=== PATIENT | female | born 1990 | race African-American/Black ===

== ENCOUNTER 2019-10-29 00:10 | Emergency (ER) | payer MEDICAID, OTHER ==
[~2019-10-29] VITALS: Ht 170.2 cm; Wt 59.0 kg
[2019-10-29] MEDS ORDERED: BUPROPION XL150 MG ORAL (00:26)
[2019-10-29] MEDS ORDERED: ABILIFY15 MG ORAL (00:26)
[2019-10-29] MEDS ORDERED: PREDNISONE20 MG ORAL (00:53)
[2019-10-29] MEDS ORDERED: ALBUTEROL SULF8.5 GM INH (00:53)
--- NOTE | 2019-10-29 00:54 | Emergency Room Report ---
History of Present Illness General Chief Complaint: Asthma Source: Patient Present Illness HPI This is a 29-year-old female with a history of asthma as a kid. She has not had to use her inhaler for over 6 years. She presents with chief complaint of shortness of breath and wheezing. Onset 6 hours ago. She says she was around people who were sick and smoking. She been having wheezing and short of breath since then. Worse with exertion. Better with rest. No chest pain. No fever chills. Coughing is nonproductive nature. Denies any other complaint. Allergies: Coded Allergies: No Known Allergies (Unverified , 10/29/19) Patient History Past Medical History: see triage record, old chart reviewed, asthma Past Surgical History: none Pertinent Family History: none Social History: Reports: smoking Last Menstrual Period: 10/23/19 Now: No Immunizations: other Reviewed Nursing Documentation: PMH: Agreed; PSxH: Agreed Nursing Documentation-PMH Past Medical History: No History, Except For Hx Asthma: Yes History Of Psychiatric Problem: Yes - BIPOLAR Review of Systems Eye: Denies: eye pain, blurred vision ENT: Denies: ear pain, nose congestion, throat swelling Respiratory: Reports: cough, shortness of breath, wheezing Cardiovascular: Denies: chest pain, palpitations Gastrointestinal: Denies: abdominal pain, diarrhea, nausea, vomiting Musculoskeletal: Denies: back pain, joint pain Skin: Denies: rash Neurological: Denies: headache, numbness Endocrine: Denies: increased thirst, increased urine Hematologic/Lymphatic: Denies: easy bruising All Other Systems: negative except mentioned in HPI Physical Exam Vital Signs Date Time Temp Pulse Resp B/P (MAP) Pulse Ox O2 Delivery O2 Flow Rate FiO2 10/29/19 00:22 97.5 105 22 117/77 (90) 99 Room Air Vitals normal Sp02 EP Interpretation: reviewed, normal General Appearance: well appearing, no apparent distress, alert Head: normocephalic, atraumatic Eyes: bilateral eye PERRL, bilateral eye EOMI ENT: hearing grossly normal, normal pharynx Neck: full range of motion, supple, no meningismus Respiratory: chest non-tender, decreased breath sounds, wheezing Cardiovascular #1: regular rate, rhythm, no murmur Gastrointestinal: normal bowel sounds, non tender, no mass, no organomegaly, no bruit, non-distended Musculoskeletal: back normal, normal range of motion, gait/station normal Psychiatric: mood/affect normal Medical Decision Making Diagnostic Impression: Primary Impression: Asthma exacerbation Qualified Codes: J45.21 - Mild intermittent asthma with (acute) exacerbation Additional Impression: Bacterial vaginosis ER Course Patient presents with asthma exacerbation. No evidence of ACS, PE, pneumonia, dissection to name a few. Better after breathing treatment. Will discharge home. Patient also asked prescription for Flagyl for bacterial vaginosis. She states she usually get this when she has a new sexual partner. Last Vital Signs Date Time Temp Pulse Resp B/P (MAP) Pulse Ox O2 Delivery O2 Flow Rate FiO2 10/29/19 00:22 97.5 105 22 117/77 (90) 99 Room Air Status: improved Disposition: HOME, SELF-CARE Condition: Stable Scripts Metronidazole* (FLAGYL*) 500 Mg Tablet 500 MG ORAL BID for 7 Days, #14 TAB Prov: Jason Dyer MD 10/29/19 Prednisone* (PREDNISONE*) 20 Mg Tablet 40 MG ORAL DAILY, #8 TAB Prov: Jason Dyer MD 10/29/19 Albuterol Sulfate* (ALBUTEROL SULFATE MDI*) 8.5 Gm Hfa.aer.ad 2 PUFF INH Q4H PRN for cough/wheezing, #1 EA 0 Refills Prov: Jason Dyer MD 10/29/19 Referrals: NOT CHOSEN IPA/,REFERRING (PCP) Patient Instructions: Asthma, Adult Additional Instructions: Follow-up with your doctor in 7 days. Avoid secondhand smoke. Stop smoking. Return if symptoms worsen. Jason Dyer MD Oct 29, 2019 00:54
[2019-10-29] MEDS ORDERED: Albuterol ud Inhalation HHN ONE (01:00)
[2019-10-29] MEDS ORDERED: Ipratropium 0.02% Inh Soln 2.5ml UD HHN ONE (01:00)
[2019-10-29] MEDS ORDERED: METRONIDAZOLE500 MG ORAL (01:41)
[2019-10-29 01:45] VITALS: BP 117/77
--- NOTE | 2019-10-29 01:45 | NUR ---
ER DISCHARGE NOTE: Patient is cleared to be discharged per ERMD, pt is aox4, on room air, with stable vital signs. pt was given dc and prescription instructions, pt was able to verbalize understanding, pt id band removed without complications. pt is able to ambulate with steady gait. pt took all belongings.
== END 2019-10-29 01:45 | disposition home or self-care (01) ==
LOC: EMR 00:23
DX: J45.21 Mild intermittent asthma with (acute) exacerbation (principal); N76.0 Acute vaginitis; F31.9 Bipolar disorder, unspecified; F17.200 Nicotine dependence, unspecified, uncomplicated
CPT/HCPCS: J7512; Z7502; 99284

== ENCOUNTER 2019-11-23 02:19 | Emergency (ER) | payer OTHER ==
[~2019-11-23] VITALS: Ht 167.6 cm; Wt 59.0 kg
[~2019-11-23 02:19] MED LIST: ABILIFY15 MG ORAL; ALBUTEROL SULF8.5 GM INH; BUPROPION XL150 MG ORAL; METRONIDAZOLE500 MG ORAL; PREDNISONE20 MG ORAL
[2019-11-23 02:29] VITALS: BP 130/82
[2019-11-23] MEDS ORDERED: Albuterol/Ipratropium 3ml neb HHN ONE (02:30)
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
--- NOTE | 2019-11-23 02:33 | NUR ---
ED Nurse Note: Pt refused VS
--- NOTE | 2019-11-23 02:40 | NUR ---
ED Nurse Note: ERMD at bedside.
--- NOTE | 2019-11-23 02:47 | NUR ---
ED Nurse Note: RT at bedside; pt refused breathing tx.
[2019-11-23] MEDS ORDERED: ALBUTEROL SULF8.5 GM INH (02:57)
--- NOTE | 2019-11-23 03:27 | NUR ---
ED Nurse Note: Pt's friend arrived; pt refused further medical treatment
[2019-11-23 03:34] VITALS: BP 130/82
--- NOTE | 2019-11-23 03:34 | NUR ---
ER DISCHARGE NOTE: Patient is cleared to be discharged home with friend per ALEXANDRA, pt is aox4, on room air, with stable vital signs. pt was given dc and prescription instructions, pt was able to verbalize understanding, pt id band. pt is able to ambulate with steady gait. pt took all belongings.
--- NOTE | 2019-11-23 03:35 | NUR ---
Hemant winkler in EDM - 11/23/19 at 0532 by [facility] ED Nurse Note: Pt's friend arrived; pt refused further medical treatment
== END 2019-11-23 03:34 | disposition home or self-care (01) ==
LOC: EDBD 02:19 → EDUNIT# 02:19 → EMR 02:33
DX: R06.02 Shortness of breath (principal); R00.0 Tachycardia, unspecified
CPT/HCPCS: 99281; J7620

== ENCOUNTER 2019-12-13 17:11 | Emergency (ER) | payer OTHER ==
[~2019-12-13] VITALS: Ht 170.2 cm; Wt 63.5 kg
[2019-12-13 17:39] VITALS: BP 122/81
--- NOTE | 2019-12-13 18:03 | Emergency Room Report ---
History of Present Illness General Chief Complaint: Skin Rash/Abscess Source: Patient Present Illness HPI This patient left prior to evaluation by medical provider. COVID-19 risk:Contact w/high r: No COVID-19 risk:Travel to affect: No Has patient experienced short: No Allergies: Coded Allergies: No Known Allergies (Unverified , 10/29/19) Patient History Last Menstrual Period: 11/22/2019 Nursing Documentation-[facility] Past Medical History: No Stated History Hx Asthma: Yes Physical Exam Vital Signs Date Time Temp Pulse Resp B/P (MAP) Pulse Ox O2 Delivery O2 Flow Rate FiO2 12/13/19 17:17 98.4 105 18 129/85 (100) 99 Room Air Medical Decision Making PA Attestation Dr. Negro Is my supervising Physician whom patient management has been discussed with. ER Course This patient left prior to evaluation by medical provider. Provider went to examine pt. at the 51 minute rivera and pt. was not in room. Last Vital Signs Date Time Temp Pulse Resp B/P (MAP) Pulse Ox O2 Delivery O2 Flow Rate FiO2 12/13/19 17:39 98.4 86 16 122/81 98 Room Air Disposition: LEFT W/OUT BEING SEEN Condition: Unknown Kenia Cotter Dec 13, 2019 18:03
== END 2019-12-13 18:02 | disposition left against medical advice (07) ==
LOC: EMR 17:58
DX: Z53.21 Procedure and treatment not carried out due to patient leaving prior to being seen by health care provider (principal)

== ENCOUNTER 2019-12-15 01:04 | Emergency (ER) | payer OTHER ==
[~2019-12-15] VITALS: Ht 170.2 cm; Wt 63.5 kg
[2019-12-15 01:15] VITALS: BP 125/70
--- NOTE | 2019-12-15 01:15 | NUR ---
ED Nurse Note: pt ambulated into ed from home CO pain from possible abcess on back right thigh/lower buttocks x 1 week. VSS no ss of distress noted. pt states pain 4/10. ERMD at bedside
--- NOTE | 2019-12-15 01:17 | NUR ---
ED Nurse Note: all medications administered, pt tolerated well no ss of distress noted. no adverse reactions noted.
[2019-12-15] MEDS ORDERED: CEPHALEXIN500 M1 ORAL (01:20)
[2019-12-15] MEDS ORDERED: BACTRIM DS TAB1 EAC1 ORAL (01:20)
--- NOTE | 2019-12-15 01:25 | Emergency Room Report ---
History of Present Illness General Chief Complaint: Skin Rash/Abscess Source: Patient Present Illness HPI Patient is a 29-year-old female denies any significant past medical history who presents to the ER complaining of right posterior upper thigh abscess for the past few days. She denies any fever or chills. She states that she had another abscess to her right buttock that previously healed without any intervention. She denies any rash. She denies any chest pain, shortness of breath, nausea or vomiting. COVID-19 risk:Contact w/high r: No COVID-19 risk:Travel to affect: No Has patient experienced short: No Allergies: Coded Allergies: No Known Allergies (Unverified , 10/29/19) Patient History Past Medical History: none Past Surgical History: none Social History: Reports: drug use - marijuana Nursing Documentation-[facility] Hx Asthma: Yes Review of Systems All Other Systems: negative except mentioned in HPI Physical Exam Vital Signs Date Time Temp Pulse Resp B/P (MAP) Pulse Ox O2 Delivery O2 Flow Rate FiO2 12/15/19 01:13 97.9 100 16 125/70 (88) 98 Room Air Sp02 EP Interpretation: reviewed, normal General Appearance: no apparent distress, alert, GCS 15, non-toxic Head: normocephalic, atraumatic Eyes: bilateral eye normal inspection, bilateral eye PERRL ENT: hearing grossly normal, normal pharynx, no angioedema, normal voice Neck: full range of motion, supple/symm/no masses Respiratory: chest non-tender, lungs clear, normal breath sounds, speaking full sentences Cardiovascular #1: regular rate, rhythm, no edema Gastrointestinal: normal bowel sounds, non tender, soft, non-distended, no guarding, no rebound Rectal: deferred Genitourinary: normal inspection, no CVA tenderness Musculoskeletal: back normal, normal range of motion, calf tenderness, gait/ station normal, other - Right posterior upper thigh below the gluteus abscess with tenderness to palpation no area of maximal fluctuance for I&D, no crepitus , mild warmth and erythema to the area. Evidence of old healed abscess to right upper buttock Neurologic: alert, motor strength/tone normal, oriented x3, sensory intact, responsive, speech normal Psychiatric: judgement/insight normal, memory normal, mood/affect normal, no suicidal/homicidal ideation Lymphatic: no adenopathy Medical Decision Making Diagnostic Impression: Primary Impression: Abscess ER Course Patient given Keflex and Bactrim. No maximal area of fluctuance for I&D. Patient requesting prescription for Abilify. I have explained to her that we do not refill psychiatric medications in this emergency department. Patient given a prescription for both Keflex and Bactrim. After discussing risks and benefits of further diagnostics, treatment plans, as well as indications for and risks of admission, the patient is agreeable to being discharged home. I have explained that their evaluation and treatment in the emergency department today is an important step towards them achieving better health but that their evaluation today is not intended to replace further evaluation and treatment by a physician in their local clinic. I have explained that while the current findings suggest no immediate life threatening emergency they will require further evaluation and treatment by a physician of their choice in their area. They understand that it will be necessary for them to review the final reports of their ED visit with their clinic physician. We have reviewed indications for return to the Emergency Department. I have explained that additional time may need to pass and/or additional testing as an outpatient may be necessary before a definitive diagnosis can be made. They tell me they are willing to follow up as instructed within the timeframe I recommend. They appear to understand what we discussed. Additionally they understand that if they are unable to be seen by an outpatient physician they are welcome, and in fact should, return to the Emergency Department for a repeat evaluation. The patient is stable at time of discharge. Last Vital Signs Date Time Temp Pulse Resp B/P (MAP) Pulse Ox O2 Delivery O2 Flow Rate FiO2 12/15/19 01:13 97.9 100 16 125/70 (88) 98 Room Air Disposition: HOME, SELF-CARE Condition: Stable Scripts Cephalexin* (KEFLEX*) 500 Mg Tablet 500 MG ORAL EVERY 8 HOURS for 10 Days, CAP Prov: Cherie Potts M.D. 12/15/19 Trimethoprim/Sulfamethoxazole 160/800* (BACTRIM DS TABLET*) 1 Each Tablet 1 TAB ORAL Q12H, #20 TAB 0 Refills Prov: Cherie Potts M.D. 12/15/19 Referrals: [facility] Serra [facility] Patient Instructions: Abscess Additional Instructions: The patient was provided with discharge instructions, notified to follow-up with a primary care doctor and or specialist in the next 24-48 hours, and to return to the ED if they have worsening of their symptoms. Please note that this report is being documented using [employer] technology. This can lead to erroneous entry secondary to incorrect interpretation by the dictating instrument. Cherie Potts M.D. Dec 15, 2019 01:25
[2019-12-15 01:26] VITALS: BP 125/70
--- NOTE | 2019-12-15 01:26 | NUR ---
ER DISCHARGE NOTE: Patient is cleared to be discharged home per ERMD, pt is aox4, on room air, with stable vital signs. pt was given dc and prescription instructions, pt was able to verbalize understanding, pt id band removed. pt is able to ambulate with steady gait. pt took all belongings.
[2019-12-15] MEDS ORDERED: Cephalexin 500mg cap ORAL ONE (01:30)
[2019-12-15] MEDS ORDERED: Bactrim-DS 1 tab ORAL ONE (01:30)
== END 2019-12-15 01:30 | disposition home or self-care (01) ==
LOC: EMR 01:27
DX: L02.415 Cutaneous abscess of right lower limb (principal)
CPT/HCPCS: 99283

== ENCOUNTER 2020-02-24 02:45 | Emergency (ER) | payer MEDICAID, OTHER ==
[~2020-02-24] VITALS: Ht 170.2 cm; Wt 63.5 kg
[~2020-02-24 02:45] MED LIST changes: +BACTRIM DS TAB1 EAC1 ORAL; +CEPHALEXIN500 M1 ORAL
[2020-02-24 02:50] VITALS: BP 128/68
--- NOTE | 2020-02-24 03:07 | Emergency Room Report ---
History of Present Illness General Chief Complaint: General Complaint Source: Patient Present Illness HPI This 29-year-old female who is right-hand dominant. She presents with chief complaint of ingrown fingernail. Onset for about a week but worse in the last couple of days. More swollen. She been trying remove it and also biting at it. Now very tender. Worse with palpation. Pain is 8 out of 10. Better with rest. Denies any other complaint. No drainage. Allergies: Coded Allergies: No Known Allergies (Unverified , 10/29/19) COVID-19 Screening Contact w/high risk pt: No Recent Travel to affected area: No Experienced COVID-19 symptoms?: No COVID-19 Testing performed RADIOCHEMICAL TECHNICIAN: No Patient History Past Medical History: see triage record, old chart reviewed Past Surgical History: none Pertinent Family History: none Social History: Denies: smoking Last Menstrual Period: 12/23 Now: No Immunizations: other Reviewed Nursing Documentation: PMH: Agreed; PSxH: Agreed Nursing Documentation-PMH Hx Asthma: Yes Review of Systems Eye: Denies: eye pain, blurred vision ENT: Denies: ear pain, nose congestion, throat swelling Respiratory: Denies: cough, shortness of breath Cardiovascular: Denies: chest pain, palpitations Gastrointestinal: Denies: abdominal pain, diarrhea, nausea, vomiting Musculoskeletal: Reports: joint pain, joint swelling; Denies: back pain Skin: Denies: rash Neurological: Denies: headache, numbness Endocrine: Denies: increased thirst, increased urine Hematologic/Lymphatic: Denies: easy bruising All Other Systems: negative except mentioned in HPI Physical Exam Vital Signs Date Time Temp Pulse Resp B/P (MAP) Pulse Ox O2 Delivery O2 Flow Rate FiO2 02/24/20 02:47 97.9 68 14 128/68 (88) 94 Room Air Vitals normal Sp02 EP Interpretation: reviewed, normal General Appearance: well appearing, no apparent distress, alert Head: normocephalic, atraumatic Eyes: bilateral eye PERRL, bilateral eye EOMI ENT: hearing grossly normal, normal pharynx Neck: full range of motion, supple, no meningismus Respiratory: chest non-tender, lungs clear, normal breath sounds Cardiovascular #1: regular rate, rhythm, no murmur Gastrointestinal: normal bowel sounds, non tender, no mass, no organomegaly, no bruit, non-distended Musculoskeletal: back normal, normal range of motion, gait/station normal, swelling - Right middle finger: On the lateral aspect on the ulnar aspect there is ingrown nail with tenderness and swelling. No drainage. No paronychia. Psychiatric: mood/affect normal Procedures Additional Procedure Procedure Narrative Procedure: Ingrown nail extraction Indication: Infected ingrown nail Description: I soak the finger into Betadine solution. After 10 minutes, I cleaned the finger and did a digital block. Using a hemostat, I removed a piece of hangnail/ingrown nail at the base. Patient tolerated surgery without any problem. No complication. Medical Decision Making Diagnostic Impression: Primary Impression: Ingrowing nail with infection ER Course Patient presents with an infected ingrown nail. No evidence of felon or paronychia. Will discharge home. Last Vital Signs Date Time Temp Pulse Resp B/P (MAP) Pulse Ox O2 Delivery O2 Flow Rate FiO2 02/24/20 02:47 97.9 68 14 128/68 (88) 94 Room Air Status: improved Disposition: HOME, SELF-CARE Condition: Stable Scripts Ibuprofen* (MOTRIN*) 600 Mg Tablet 600 MG ORAL Q6H PRN for For Pain, #30 TAB 0 Refills Prov: Jason Dyer MD 02/24/20 Clindamycin Hcl (CLINDAMYCIN HCL) 300 Mg Capsule 300 MG ORAL THREE TIMES A DAY, #21 CAP Prov: Jason Dyer MD 02/24/20 Additional Instructions: Keep wound clean. Clean with hydrogen peroxide and then apply antibiotic ointment and a Band-Aid. Follow-up in 3 to 5 days for recheck. Return if worse. Jason Dyer MD Feb 24, 2020 03:07
[2020-02-24] MEDS ORDERED: CLINDAMYCIN HC300 MG ORAL (03:39)
[2020-02-24] MEDS ORDERED: IBUPROFEN600 M1 ORAL (03:39)
[2020-02-24 04:00] VITALS: BP 125/75
[2020-02-24] MEDS ORDERED: HYDROcodone/Acetamin 5/325 tab ORAL ONE (04:00)
[2020-02-24] MEDS ORDERED: Bactrim-DS 1 tab ORAL ONE (04:00)
== END 2020-02-24 04:00 | disposition home or self-care (01) ==
LOC: EMR 03:10
DX: L60.0 Ingrowing nail (principal)
CPT/HCPCS: 11750; Z7502; 99283

== ENCOUNTER 2020-04-29 02:55 | Emergency (ER) | payer MEDICAID, OTHER ==
[~2020-04-29] VITALS: Ht 170.2 cm; Wt 68.0 kg
[~2020-04-29 02:55] MED LIST changes: +CLINDAMYCIN HC300 MG ORAL; +IBUPROFEN600 M1 ORAL
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
--- NOTE | 2020-04-29 03:12 | NUR ---
ED Nurse Note: Patient walked in from home d/t "mites". Patient aao x 4 and ambulatory with steady gait. Patient presents with generalized skin tears, states it has been going on for about two weeks, aching pain generalized /. Patient in stable condition upon assessment.
[2020-04-29 03:15] VITALS: BP 122/70
[2020-04-29] MEDS ORDERED: PERMETHRIN60 GM TOPIC (03:17)
[2020-04-29] MEDS ORDERED: CEPHALEXIN500 MG ORAL (03:17)
[2020-04-29 03:26] VITALS: BP 125/72
--- NOTE | 2020-04-29 03:26 | NUR ---
ER DISCHARGE NOTE: Patient is cleared to be discharged per ERMD, pt is aox4, on room air, with stable vital signs. pt was given dc and prescription instructions, pt was able to verbalize understanding, pt id band removed. pt is able to ambulate with steady gait. pt took all belongings. pt stable upon discharge.
== END 2020-04-29 03:35 | disposition home or self-care (01) ==
LOC: EMR 03:33
DX: B86 Scabies (principal); R21 Rash and other nonspecific skin eruption; J45.909 Unspecified asthma, uncomplicated; F17.200 Nicotine dependence, unspecified, uncomplicated
CPT/HCPCS: 99282

== ENCOUNTER 2020-07-23 10:06 | Emergency (ER) | payer MEDICAID ==
[~2020-07-23] VITALS: Ht 170.2 cm; Wt 63.5 kg
[~2020-07-23 10:06] MED LIST changes: +CEPHALEXIN500 MG ORAL; +PERMETHRIN60 GM TOPIC; +VIBRAMYCIN100 MG ORAL
[2020-07-23 10:42] VITALS: BP 126/60
[2020-07-23] MEDS ORDERED: Azithromycin 250mg tab ORAL ONE (11:00)
[2020-07-23] MEDS ORDERED: Lidocaine 1% MPF 10mg/ml 5ml INJ ONE (11:00)
[2020-07-23 11:05] LABS: APPEARANCE,URINE SLIGHTLY CLOUDY; BILIRUBIN, URINE NEGATIVE (NEGATIVE); GLUCOSE, URINE (UA) NEGATIVE (NEGATIVE); KETONES,URINE 1+ (NEGATIVE); LEUKOCYTE ESTERASE ,URINE 1+ (NEGATIVE); NITRITE,URINE NEGATIVE (NEGATIVE); PH,URINE 5 (4.5-8.0); PROTEIN,URINE 2+ (NEGATIVE); UROBILINOGEN,URINE 1 MG/DL (0.0-1.0)
[2020-07-23 11:07] LABS: COLOR,URINE YELLOW
--- NOTE | 2020-07-23 11:21 | Emergency Room Report ---
History of Present Illness General Chief Complaint: Female Urogenital Problems Source: Patient Present Illness HPI 30-year-old female here with 3 days of white vaginal discharge. Patient says that she has been sexually active with multiple male partners without use of protection. Is requesting "shot and the pill" for treatment for STI. Patient denies any fevers, chills, chest pain, palpitation, shortness of breath, back pain, abdominal pain, nausea, vomiting, diarrhea, dysuria. Allergies: Coded Allergies: No Known Allergies (Unverified , 10/29/19) COVID-19 Screening Contact w/high risk pt: No Recent Travel to affected area: No Experienced COVID-19 symptoms?: No COVID-19 Testing performed RN IMAGING: No Patient History Now: No Nursing Documentation-[facility] Past Medical History: No Stated History Hx Asthma: Yes Review of Systems All Other Systems: negative except mentioned in HPI Physical Exam Vital Signs Date Time Temp Pulse Resp B/P (MAP) Pulse Ox O2 Delivery O2 Flow Rate FiO2 07/23/20 10:12 98.1 93 16 126/60 (82) 99 Room Air Sp02 EP Interpretation: reviewed, normal General Appearance: no apparent distress, alert, non-toxic Head: normocephalic, atraumatic Eyes: bilateral eye normal inspection, bilateral eye PERRL ENT: hearing grossly normal, normal pharynx, no angioedema, normal voice Neck: full range of motion, supple/symm/no masses Respiratory: chest non-tender, lungs clear, normal breath sounds, speaking full sentences Cardiovascular #1: regular rate, rhythm, no edema Cardiovascular #2: 2+ carotid (R), 2+ carotid (L), 2+ radial (R), 2+ radial (L), 2+ dorsalis pedis (R), 2+ dorsalis pedis (L) Gastrointestinal: normal bowel sounds, non tender, soft, non-distended, no guarding, no rebound Rectal: deferred Genitourinary: normal inspection, no CVA tenderness, other - Scant amount of thin white discharge within the vaginal canal. No cervical motion tenderness or adnexal tenderness Musculoskeletal: back normal, normal range of motion, calf tenderness, gait/station normal, non-tender Neurologic: alert, motor strength/tone normal, oriented x3, sensory intact, responsive, speech normal Psychiatric: judgement/insight normal, memory normal, mood/affect normal, no suicidal/homicidal ideation Reflexes: 3+ bicep (R), 3+ bicep (L), 3+ tricep (R), 3+ tricep (L), 3+ knee (R), 3+ knee (L) Lymphatic: no adenopathy Medical Decision Making Diagnostic Impression: Primary Impression: Vaginal discharge Additional Impressions: Abnormal urogenital findings STI (sexually transmitted infection) ER Course Laboratory Tests Test 07/23/20 10:30 Urine Color Yellow Urine Appearance Slightly cloudy Urine pH 5 (4.5-8.0) Urine Specific [place] 1.025 (1.005-1.035) Urine Protein 2+ (NEGATIVE) H Urine Glucose (UA) Negative (NEGATIVE) Urine Ketones 1+ (NEGATIVE) H Urine Blood Negative (NEGATIVE) Urine Nitrite Negative (NEGATIVE) Urine Bilirubin Negative (NEGATIVE) Urine Urobilinogen 1 MG/DL (0.0-1.0) H Urine Leukocyte Esterase 1+ (NEGATIVE) H Urine RBC 0 /HPF (0 - 2) Urine WBC 0-2 /HPF (0 - 2) Urine Squamous Epithelial Cells Many /LPF (NONE/OCC) H Urine Bacteria Few /HPF (NONE) Urine Mucus Few /LPF (NONE/OCC) H Urine HCG, Qualitative Negative (NEGATIVE) 30-year-old female here requesting antibiotic treatment for sexual transmitted disease. Patient was given ceftriaxone and azithromycin here in the emergency department. Pelvic exam was largely unremarkable and patient had no evidence of adnexal tenderness, cervical motion tenderness, abdominal tenderness. No concern at this time for pelvic inflammatory disease. test negative. Patient's urinalysis did show some leukocytes, however patient was complaining only of vaginal discharge and no dysuria or urinary frequency or hematuria. Unlikely patient has urinary tract infection. Urine cultures pending. Patient was told to come back to the emergency department she has any worsening abdominal pain, fevers, chills, pelvic pain, dysuria. She expressed understanding and was discharged. Last Vital Signs Date Time Temp Pulse Resp B/P (MAP) Pulse Ox O2 Delivery O2 Flow Rate FiO2 07/23/20 10:42 98.1 16 126/60 99 Room Air 07/23/20 10:12 93 Disposition: HOME, SELF-CARE Condition: Stable Referrals: [facility] *Patients are seen by appointment only* [facility] Patient Instructions: Sexually Transmitted Disease, [id number] Baldomero Hernandez M.D. Jul 23, 2020 11:21
[2020-07-23 11:41] VITALS: BP 126/60
== END 2020-07-23 11:41 | disposition home or self-care (01) ==
LOC: EMR 10:23
DX: N89.8 Other specified noninflammatory disorders of vagina (principal); A64 Unspecified sexually transmitted disease; R87.9 Unspecified abnormal finding in specimens from female genital organs
CPT/HCPCS: 81003; 81025; 96372; J0696; Q0144; Z7502; 99283

== ENCOUNTER 2020-08-01 10:48 | Emergency (ER) | payer MEDICAID ==
[~2020-08-01] VITALS: Ht 170.2 cm; Wt 68.0 kg
[2020-08-01 10:56] VITALS: BP 121/74
--- NOTE | 2020-08-01 11:17 | Emergency Room Report ---
History of Present Illness General Chief Complaint: Skin Rash/Abscess Source: Patient Present Illness HPI Disclaimer: Please note that this report is being documented using Lookback[employer] technology. This can lead to erroneous entry secondary to incorrect interpretation by the dictating instrument. HPI: 30-year-old female presents for evaluation of skin rash and scabbing. Patient reports 6 months of intermittent small wounds on her arms and legs as well as worsening scarring. She states she feels her skin is not healing is normal. She reports tenderness over these healed lesions but denies redness, swelling or drainage. Denies fever or chills. She states she picks at scabs constantly out of nervousness. She has recently been treated for cellulitis, mites, scabies and states none of these have improved her symptoms. She is requested to be treated for staph infection. She denies abscess drainage or purulent discharge. 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 EOMI. Resp: Normal work of breathing Skin: Intact. There are multiple small healed lesions over the upper and lower extremities. No obvious signs of cellulitis, abscess. Nikolsky negative. No draining wounds. No findings in the finger webbing's. MSK: Normal tone and bulk. Moving all extremities. No obvious deformity. Neuro: Awake and alert. Mentating appropriately Medical Decision Making Diagnostic Impression: Primary Impression: Rash and other nonspecific skin eruption Additional Impression: Scarring ER Course Is a 30-year-old female presenting for evaluation of multiple skin lesions and increased scarring over the past 6 months. She has not yet seen dermatology. I find no signs of infection to suggest abscess or cellulitis. No clinical ev idence of scabies and patient states she has been treated with permethrin multiple times without changes in her symptoms. Patient's presentation is most consistent with skin picking behavior possibly due to her anxiety. I do not believe she needs antibiotics at this time but I will refer to outpatient clinic and dermatology follow-up. Also provided prescription of Benadryl cream which may provide some relief. Patient stable for outpatient follow-up. Last Vital Signs Date Time Temp Pulse Resp B/P (MAP) Pulse Ox O2 Delivery O2 Flow Rate FiO2 08/01/20 10:56 98.1 94 16 121/74 94 Room Air Disposition: HOME, SELF-CARE Scripts Diphenhydramine HCl/Zinc Acet (Benadryl Itch Stopping Crm) 28.3 Gm Cream..g. 1 APPLIC TOPIC TID, #30 APPLIC Prov: Benson Dial MD 08/01/20 Referrals: [facility] Additional Instructions: Follow-up with one of the primary care clinics here listed in your discharge paperwork. Establish yourself as a new patient and have a referral for dermatology to evaluate your recurrent skin lesions and scarring. Benson Dial MD Aug 01, 2020 11:17
[2020-08-01] MEDS ORDERED: BENADRYL CRE1 APPLIC TOPIC (11:18)
[2020-08-01 11:20] VITALS: BP 121/74
[2020-08-01] MEDS ORDERED: DiphenhydrAMINE & Zinc 28g Cream TOPIC ONE ×2 (11:21→11:30)
== END 2020-08-01 11:20 | disposition home or self-care (01) ==
LOC: EMR 11:15
DX: R21 Rash and other nonspecific skin eruption (principal); L90.5 Scar conditions and fibrosis of skin; J45.909 Unspecified asthma, uncomplicated
CPT/HCPCS: 99282

== ENCOUNTER 2020-12-08 07:51 | Emergency (ER) | payer MEDICAID ==
[~2020-12-08] VITALS: Ht 170.2 cm; Wt 63.5 kg
[~2020-12-08 07:51] MED LIST changes: +BENADRYL CRE1 APPLIC TOPIC
[2020-12-08 08:03] VITALS: BP 130/80
--- NOTE | 2020-12-08 08:16 | Emergency Room Report ---
History of Present Illness General Chief Complaint: Medication Refill Source: Patient Present Illness HPI Patient is a 30-year-old female who presents for medication refill. Reports having recently run out of her bipolar medications. States he had previously been on Abilify as well as Wellbutrin and Lamictal. Reports having recent sexual transmitted disease exposure. Denies any fever. Increased vaginal d ischarge. Denies any other complaints currently. 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 Patient History Past Medical History: see triage record Last Menstrual Period: 11/13/20 Now: No Reviewed Nursing Documentation: PMH: Agreed; PSxH: Agreed Nursing Documentation-PMH Hx Asthma: Yes History Of Psychiatric Problem: Yes - bi polar Review of Systems All Other Systems: negative except mentioned in HPI Physical Exam Vital Signs Date Time Temp Pulse Resp B/P (MAP) Pulse Ox O2 Delivery O2 Flow Rate FiO2 12/08/20 08:03 98.1 78 18 130/80 (97) 98 Room Air Sp02 EP Interpretation: reviewed, normal General Appearance: normal inspection, well appearing, no apparent distress, alert, GCS 15 Head: atraumatic ENT: normal ENT inspection, hearing grossly normal, normal voice Neck: normal inspection, full range of motion, supple, no bony tend Respiratory: normal inspection, lungs clear, normal breath sounds, no respiratory distress, no retraction, no wheezing Cardiovascular #1: regular rate, rhythm, no edema Gastrointestinal: normal inspection, normal bowel sounds, non tender, soft, no guarding, no hernia Genitourinary: no CVA tenderness Musculoskeletal: normal inspection, back normal, normal range of motion Neurologic: alert, motor strength/tone normal, bicycle i assembler III-XII nml as tested, responsive, speech normal, normal inspection Psychiatric: normal inspection, judgement/insight normal, mood/affect normal Medical Decision Making Diagnostic Impression: Primary Impression: STI (sexually transmitted infection) Additional Impression: Medication refill ER Course Patient presents for medication refill and possible STD infection. Differential diagnosis include was not limited to gonorrhea, pelvic inflammatory disease, bipolar disorder among others. Patient has a benign exam and does not appear to require any imaging or laboratory testing at this time. Patient's history of recent sexually transmitted disease exposure will be treated empirically with medications. She states he is currently taking doxycycline. Patient was given Rocephin IM. She will be additionally prescribed medications for treatment of bipolar disorder. Does not appear to require psychiatric treatment at this time. This medical record is generated with [email or web address] unishear operator software. There may be some unishear operator discrepancies related to use of this software Last Vital Signs Date Time Temp Pulse Resp B/P (MAP) Pulse Ox O2 Delivery O2 Flow Rate FiO2 12/08/20 08:03 98.1 78 18 130/80 (97) 98 Room Air Status: improved Disposition: HOME, SELF-CARE Condition: Stable Scripts Acyclovir* (ZOVIRAX*) 800 Mg Tablet 800 MG ORAL FIVE TIMES A DAY, #35 TAB Prov: Sylvain Huang MD 12/08/20 Bupropion HCl (Bupropion Xl) 150 Mg Tab.er.24h 150 MG ORAL DAILY for 30 Days, TAB 0 Refills Prov: Sylvain Huang MD 12/08/20 Lamotrigine* (LAMICTAL*) 100 Mg Tablet 100 MG ORAL DAILY, #30 TAB 0 Refills Prov: Sylvain Huang MD 12/08/20 Aripiprazole* (ABILIFY*) 15 Mg Tablet 30 MG ORAL DAILY, #30 TAB 0 Refills Prov: Sylvain Huang MD 12/08/20 Metronidazole* (FLAGYL*) 500 Mg Tablet 500 MG ORAL BID for 7 Days, #14 TAB Prov: Sylvain Huang MD 12/08/20 Sylvain Huang MD Dec 08, 2020 08:16
[2020-12-08 08:23] VITALS: BP 130/80
--- NOTE | 2020-12-08 08:24 | NUR ---
urielame to er complaints she wants her psych meds refill also wants to be checked for std denies any complaints
[2020-12-08] MEDS ORDERED: METRONIDAZOLE500 MG ORAL (08:30)
[2020-12-08] MEDS ORDERED: ABILIFY15 MG ORAL (08:30)
[2020-12-08] MEDS ORDERED: ACYCLOVIR800 MG ORAL (08:30)
[2020-12-08] MEDS ORDERED: LAMICTAL100 MG ORAL (08:30)
[2020-12-08] MEDS ORDERED: WELLBUTRIN XL150 M3 ORAL (08:30)
[2020-12-08] MEDS ORDERED: cefTRIAXone 500mg Inj IM ONE (08:45)
[2020-12-08] MEDS ORDERED: Lidocaine 1% MPF 10mg/ml 5ml INJ ONE (08:45)
== END 2020-12-08 08:55 | disposition home or self-care (01) ==
LOC: EMR 08:25
DX: Z20.2 Contact with and (suspected) exposure to infections with a predominantly sexual mode of transmission (principal); Z76.0 Encounter for issue of repeat prescription; F31.9 Bipolar disorder, unspecified
CPT/HCPCS: 81025; 96372; J0696; Z7502; 99283